=== PATIENT | male | born 1995 | race Caucasian/White ===

== ENCOUNTER 2018-02-05 18:24 | Emergency (ER) | payer BC ==
[2018-02-05 18:41] VITALS: BP 146/97; PULSE 67; RESP 18; TEMP 98.6; O2SAT 100
[2018-02-05 21:09] LABS: AUTOMATED NEUTROPHIL # 3.3 TH/MM3 (1.8-7.7); BASOPHIL % 0.5 % (0.0-2.0); EOSINOPHIL % 0.6 % (0.0-4.0); HEMOGLOBIN 15.6 GM/DL (13.0-17.0); LYMPH % 38.6 % (9.0-44.0); LYMPHOCYTE # 2.4 TH/MM3 (1.0-4.8); MEAN CELL VOLUME 88.7 FL (80.0-100.0); MEAN CORPUSCULAR HEMOGLOBIN 30.8 PG (27.0-34.0); MEAN CORPUSCULAR HGB CONC 34.7 % (32.0-36.0); MEAN PLATELET VOLUME 7.8 FL (7.0-11.0); MONO % 7.9 % (0.0-8.0); MONOCYTE # 0.5 TH/MM3 (0-0.9); NEUT % 52.4 % (16.0-70.0); PLATELET COUNT 203 TH/MM3 (150-450); RED BLOOD COUNT 5.07 MIL/MM3 (4.50-5.90); RED CELL DISTRIBUTION WIDTH 12.8 % (11.6-17.2); WHITE BLOOD COUNT 6.2 TH/MM3 (4.0-11.0)
[2018-02-05 21:26] LABS: AST (GOT) 14 U/L (15-37); BLOOD UREA NITROGEN 12 MG/DL (7-18); CALCIUM 9.3 MG/DL (8.5-10.1); CHLORIDE 103 MEQ/L (98-107); CREATININE 1.15 MG/DL (0.60-1.30); GLOMERULAR FILTRATION RATE 80 ML/MIN (>89); GLUCOSE,RANDOM 97 MG/DL (74-106); SODIUM (NA) 140 MEQ/L (136-145)
[2018-02-05 21:27] LABS: ALT (GPT) 21 U/L (12-78)
[2018-02-05 21:30] LABS: ALKALINE PHOSPHATASE 129 U/L (45-117); TOTAL BILIRUBIN ADULT 0.7 MG/DL (0.2-1.0); TOTAL PROTEIN 8.2 GM/DL (6.4-8.2)
[2018-02-05] MEDS ORDERED: PANT20 PO (22:41)
[2018-02-05] MEDS ORDERED: ALUMINUM/MAGNESIUM/SIMETH 30 ML CUP PO ONE (22:45)
[2018-02-05] MEDS ORDERED: LIDOCAINE VISCOUS 2% SOLN 15 ML UDC PO ONE (22:45)
[2018-02-05] MEDS ORDERED: PANTOPRAZOLE SOD 20 MG DELAYED RELEASE TAB PO ONE (22:45)
--- NOTE | 2018-02-05 22:45 | PD ---
HPI Chief Complaint: Abdominal Pain Time Seen by Provider: 22:32 Travel History International Travel<30 days: No Contact w/Intl Traveler<30days: No Traveled to known affect area: No History of Present Illness HPI 22-year-old male who reports a history of anxiety presents for evaluation of abdominal pain. Symptoms started a few weeks ago. He describes it as a burning pain in his left upper quadrant and lower chest which is worse after eating. He reports associated belching. He denies nausea, vomiting, cough or congestion, flank pain, dysuria, fevers or chills. He has never experienced this before. He reports that he is currently enrolled in college and has been traveling frequently for baseball related activities. He has no other complaints at this time. [facility], [facility] Social History Alcohol Use: No Tobacco Use: No Allergies-Medications (Allergen,Severity, Reaction): Coded Allergies: No Known Allergies (Unverified , 02/05/18) Reported Meds & Prescriptions Reported Meds & Active Scripts Active Protonix (Pantoprazole Sodium) 20 Mg Tab 20 Mg PO DAILY Review of Systems Except as stated in HPI: all other systems reviewed are Neg Physical Exam Narrative GENERAL: Well-developed well-nourished male in no acute distress SKIN: Warm and dry. HEAD: Atraumatic. Normocephalic. EYES: Pupils equal and round. No scleral icterus. No injection or drainage. ENT: No nasal bleeding or discharge. Mucous membranes pink and moist. NECK: Trachea midline. No JVD. CARDIOVASCULAR: Regular rate and rhythm. No murmur appreciated. RESPIRATORY: No accessory muscle use. Clear to auscultation. Breath sounds equal bilaterally. GASTROINTESTINAL: Abdomen soft, mild left upper quadrant tenderness without guarding. MUSCULOSKELETAL: No obvious deformities. No clubbing. No cyanosis. No edema. NEUROLOGICAL: Awake and alert. No obvious cranial nerve deficits. Motor grossly within normal limits. Normal speech. Data Data Last Documented VS Vital Signs Date Time Temp Pulse Resp B/P (MAP) Pulse Ox O2 Delivery O2 Flow Rate FiO2 02/05/18 18:41 98.6 67 18 146/97 (113) 100 Orders Orders Complete Blood Count With Diff (02/05/18 18:43) Comprehensive Metabolic Panel (02/05/18 18:43) Lipase (02/05/18 18:43) Al-Mag Hy-Si 40-40-4 Mg/Ml Liq (Mag-Al P (02/05/18 22:45) Lidocaine 2% Viscous (Xylocaine 2% Visco (02/05/18 22:45) Pantoprazole (Protonix) (02/05/18 22:45) Ed Discharge Order (02/05/18 22:41) Labs Laboratory Tests Test 02/05/18 20:40 White Blood Count 6.2 TH/MM3 Red Blood Count 5.07 MIL/MM3 Hemoglobin 15.6 GM/DL Hematocrit 45.0 % Mean Corpuscular Volume 88.7 FL Mean Corpuscular Hemoglobin 30.8 PG Mean Corpuscular Hemoglobin Concent 34.7 % Red Cell Distribution Width 12.8 % Platelet Count 203 TH/MM3 Mean Platelet Volume 7.8 FL Neutrophils (%) (Auto) 52.4 % Lymphocytes (%) (Auto) 38.6 % Monocytes (%) (Auto) 7.9 % Eosinophils (%) (Auto) 0.6 % Basophils (%) (Auto) 0.5 % Neutrophils # (Auto) 3.3 TH/MM3 Lymphocytes # (Auto) 2.4 TH/MM3 Monocytes # (Auto) 0.5 TH/MM3 Eosinophils # (Auto) 0.0 TH/MM3 Basophils # (Auto) 0.0 TH/MM3 CBC Comment DIFF FINAL Differential Comment Blood Urea Nitrogen 12 MG/DL Creatinine 1.15 MG/DL Random Glucose 97 MG/DL Total Protein 8.2 GM/DL Albumin 5.0 GM/DL Calcium Level 9.3 MG/DL Alkaline Phosphatase 129 U/L Aspartate Amino Transf (AST/SGOT) 14 U/L Alanine Aminotransferase (ALT/SGPT) 21 U/L Total Bilirubin 0.7 MG/DL Sodium Level 140 MEQ/L Potassium Level 3.9 MEQ/L Chloride Level 103 MEQ/L Carbon Dioxide Level 28.0 MEQ/L Anion Gap 9 MEQ/L Estimat Glomerular Filtration Rate 80 ML/MIN Lipase 96 U/L [facility] Medical Decision Making Medical Screen Exam Complete: Yes Emergency Medical Condition: Yes Medical Record Reviewed: Yes Differential Diagnosis Gastritis, GERD, peptic ulcer disease, pancreatitis, cholecystitis, colitis Narrative Course His examination and history are very suggestive of gastritis. Lab work was obtained in triage revealing no acute abnormalities. He does report that he has been traveling quite a bit recently for baseball, eating just prior to bed, symptoms seem to be worse at night. At this point in time the plan is to give him a GI cocktail and Protonix here and discharged him with a trial of Protonix. Discussed lifestyle modifications that may help with his symptoms. Recommended follow-up in 2-3 weeks with primary care physician for recheck. He is stable for discharge. Diagnosis Primary Impression: Gastritis Additional Instructions: Medication as prescribed. Elevate head of bed at night. Avoid eating 3 hours prior to going to sleep at night. Avoid tobacco products, alcohol products, caffeine products, acidic foods. Follow-up with primary care physician in 2-3 weeks for recheck. Return for any emergent medical conditions. Med/Other Pt SpecificInfo: Prescription(s) given Scripts Pantoprazole (Protonix) 20 Mg Tab 20 MG PO DAILY for Reflux, #30 TAB 0 Refills Prov: Mustapha Monk MD 02/05/18 Disposition: 01 DISCHARGE HOME Condition: Stable Rocky Szymanski Feb 05, 2018 22:45
== END 2018-02-05 23:08 | disposition home or self-care (01) ==
LOC: NED 18:24 → NEPD 23:08
DX: K29.70 Gastritis, unspecified, without bleeding (principal); F41.9 Anxiety disorder, unspecified; Z79.899 Other long term (current) drug therapy
CPT/HCPCS: 80053; 83690; 85025; 99283